=== PATIENT | male | born 1945 | race Caucasian/White ===

== ENCOUNTER 2017-10-29 09:32 | Emergency (ER) | payer OTHER, BC ==
[~2017-10-29] VITALS: Ht 172.7 cm; Wt 95.5 kg
[~2017-10-29 09:32] MED LIST: ALLEGRA ALLERG180 MG PO; ALLEGRA ALLERGY60 MG PO; ALLEGRA30 MG PO; ALLEGRA60 MG PO; AMOXICILLIN875 MG PO; ASPIRIN81 M1 PO; AUGMENTIN500 MG PO; Aspirin E.C. PO; CHOLESTYRAMINE378 GM PO; COQ10 PO; DAILY VALUE1 EACH PO; KRILL OIL; LIDOCAINE20 MG/1 M5 PO; MOTRIN800 MG PO; Magic Mouthwash Garg MM; OMEPRAZOLE40 M1 PO; PERCOCET 5/31 TABLET PO; PRILOSEC20 MG PO; PRILOSEC40 MG PO; PRINIVIL5 MG PO; PROMETHAZINE HC25 M1 PO; PROZAC20 MG PO; ST. JOSEPH ASPI81 MG PO; TYLENOL EXTRA500 MG PO; Tylenol Extra Streng PO
[2017-10-29 10:00] LABS: BASOPHIL (%) 0.9 % (0-1); BASOPHIL COUNT 0.1 K/uL (0-0.1); EOSINOPHIL (%) 3.1 % (0-5); EOSINOPHIL COUNT 0.2 K/uL (0-0.3); HEMATOCRIT 46.7 % (38.0-50.0); IMMATURE GRANULOCYTE (%) 0.3 % (0.0-0.7); LYMPHOCYTE (%) 37.6 % (15-42); LYMPHOCYTE COUNT 2.9 K/uL (1.0-2.8); MCH 32.1 PG (29.0-34.0); MCHC 34.3 G/DL (30.0-36.0); MCV 93.6 FL (86-99); MONOCYTE (%) 10.7 % (3-12); MONOCYTE COUNT 0.8 K/uL (0-0.8); NEUTROPHIL (%) 47.4 % (45-76); NEUTROPHIL COUNT 3.6 K/uL (1.8-6.4); PLATELET COUNT 233 K/uL (156-360); RBC DIS.WIDTH-CV 12.8 % (11.8-14.6); RBC DIS.WIDTH-SD 43.8 % (39-53); RED BLOOD COUNT 4.99 M/uL (4.00-5.50); WHITE BLOOD COUNT 7.7 K/uL (4.1-10.2)
[2017-10-29 10:08] LABS: ALBUMIN 4.4 g/dL (3.2-4.8)
[2017-10-29 10:09] LABS: CHLORIDE 106 mEq/L (99-109); POTASSIUM 3.9 mEq/L (3.7-5.4); SODIUM 142 mEq/L (136-147)
[2017-10-29 10:11] LABS: GLUCOSE 110 mg/dL (70-99); TOTAL PROTEIN 7.6 g/dL (6.4-8.3)
[2017-10-29 10:13] LABS: TOTAL BILIRUBIN 1.2 mg/dL (0.0-1.0)
[2017-10-29 10:14] LABS: ALKALINE PHOSPHATASE 64 IU/L (3-129)
[2017-10-29 10:15] LABS: CREATININE 1.1 mg/dL (0.6-1.3); GFR ESTIMATE (CALCULATED) > 59 mL/min/ (58.99-99999)
[2017-10-29 10:16] LABS: AST (GOT) 76 IU/L (2-34); UREA NITROGEN (BUN) 21 mg/dL (9-23)
[2017-10-29 10:18] LABS: ALT (GPT) 46 IU/L (3-49); LIPASE 12 U/L (1.0-51.0)
[2017-10-29 10:20] LABS: TROP-I INTERPRETATION NEGATIVE; TROPONIN-I < 0.01 ng/mL (0.0-0.30)
[2017-10-29 12:50] VITALS: BP 100/59
== END 2017-10-29 12:55 | disposition home or self-care (01) ==
LOC: EME 09:32
PROVIDERS: Emergency Medicine
DX: R10.13 Epigastric pain (principal); K21.9 Gastro-esophageal reflux disease without esophagitis; K22.70 Barrett's esophagus without dysplasia; I10 Essential (primary) hypertension; F41.9 Anxiety disorder, unspecified; F32.9 Major depressive disorder, single episode, unspecified; Z90.49 Acquired absence of other specified parts of digestive tract; Z87.442 Personal history of urinary calculi; Z87.891 Personal history of nicotine dependence; Z86.73 Personal history of transient ischemic attack (TIA), and cerebral infarction without residual deficits; Z88.2 Allergy status to sulfonamides
CPT/HCPCS: 71045; 74177; 80053; 83605; 83690; 84484; 85025; 85610; 93005; 99281; 99285; J2405; J3010; J7030

== ENCOUNTER 2017-10-29 23:49 | Emergency (ER) | payer OTHER, BC ==
[~2017-10-29] VITALS: Ht 177.8 cm; Wt 96.5 kg
[2017-10-30 00:04] VITALS: BP 113/81
[2017-10-30 00:39] LABS: HEMATOCRIT 42.7 % (38.0-50.0); HEMOGLOBIN 14.7 G/DL (12.5-16.6); MCH 32.3 PG (29.0-34.0); MCHC 34.4 G/DL (30.0-36.0); MCV 93.8 FL (86-99); PLATELET COUNT 213 K/uL (156-360); RBC DIS.WIDTH-CV 12.8 % (11.8-14.6); RBC DIS.WIDTH-SD 44.2 % (39-53); RED BLOOD COUNT 4.55 M/uL (4.00-5.50)
[2017-10-30 00:47] LABS: ALBUMIN 3.9 g/dL (3.2-4.8); CHLORIDE 106 mEq/L (99-109); SODIUM 139 mEq/L (136-147)
[2017-10-30 00:49] LABS: GLUCOSE 110 mg/dL (70-99); TOTAL PROTEIN 6.6 g/dL (6.4-8.3)
[2017-10-30 00:51] LABS: TOTAL BILIRUBIN 1.1 mg/dL (0.0-1.0)
[2017-10-30 00:53] LABS: ALKALINE PHOSPHATASE 81 IU/L (3-129); CREATININE 1.1 mg/dL (0.6-1.3); GFR ESTIMATE (CALCULATED) > 59 mL/min/ (58.99-99999)
[2017-10-30 00:54] LABS: UREA NITROGEN (BUN) 17 mg/dL (9-23)
[2017-10-30 00:56] LABS: LIPASE 12 U/L (1.0-51.0)
[2017-10-30 01:06] LABS: ALT (GPT) 170 IU/L (3-49); AST (GOT) 147 IU/L (2-34)
== END 2017-10-30 02:30 | disposition left against medical advice (07) ==
LOC: EME 23:49
DX: R10.9 Unspecified abdominal pain (principal); Z53.21 Procedure and treatment not carried out due to patient leaving prior to being seen by health care provider
CPT/HCPCS: 80053; 81003; 83690; 85027

== ENCOUNTER 2017-12-14 10:38 | Inpatient (IN) | payer OTHER, BC ==
[~2017-12-14] VITALS: Ht 177.8 cm; Wt 97.0 kg
[~2017-12-14 10:38] MED LIST changes: -ALLEGRA60 MG PO
[2017-12-14 11:02] LABS: BASOPHIL (%) 0.4 % (0-1); EOSINOPHIL (%) 2.2 % (0-5); EOSINOPHIL COUNT 0.2 K/uL (0-0.3); HEMATOCRIT 42.1 % (38.0-50.0); IMMATURE GRANULOCYTE (%) 0.1 % (0.0-0.7); LYMPHOCYTE (%) 23.5 % (15-42); LYMPHOCYTE COUNT 1.6 K/uL (1.0-2.8); MCH 33.1 PG (29.0-34.0); MCHC 35.6 G/DL (30.0-36.0); MCV 92.9 FL (86-99); MONOCYTE (%) 11.2 % (3-12); MONOCYTE COUNT 0.8 K/uL (0-0.8); NEUTROPHIL (%) 62.6 % (45-76); NEUTROPHIL COUNT 4.2 K/uL (1.8-6.4); PLATELET COUNT 220 K/uL (156-360); RBC DIS.WIDTH-CV 12.3 % (11.8-14.6); RBC DIS.WIDTH-SD 42.4 % (39-53); RED BLOOD COUNT 4.53 M/uL (4.00-5.50); WHITE BLOOD COUNT 6.8 K/uL (4.1-10.2)
[2017-12-14 11:13] LABS: ALBUMIN 3.8 g/dL (3.2-4.8); CHLORIDE 104 mEq/L (99-109); POTASSIUM 3.9 mEq/L (3.7-5.4); SODIUM 138 mEq/L (136-147)
[2017-12-14 11:16] LABS: GLUCOSE 103 mg/dL (70-99); TOTAL PROTEIN 6.7 g/dL (6.4-8.3)
[2017-12-14 11:19] LABS: ALKALINE PHOSPHATASE 69 IU/L (3-129); GFR ESTIMATE (CALCULATED) > 59 mL/min/ (58.99-99999)
[2017-12-14 11:20] LABS: UREA NITROGEN (BUN) 18 mg/dL (9-23)
[2017-12-14 11:21] LABS: AST (GOT) 108 IU/L (2-34)
[2017-12-14 11:22] LABS: ALT (GPT) 56 IU/L (3-49)
[2017-12-14 11:36] LABS: LIPASE 2061 U/L (1.0-51.0)
[2017-12-14 14:13] LABS: HDL CHOLESTEROL 42 MG/DL (Desirable>=40); LDL CHOLESTEROL 115 mg/dL (Desirable<100); NON-HDL CHOLESTEROL 165 mg/dL (Desirable<160); TOTAL CHOLESTEROL 207 mg/dL (Desirable<200); TRIGLYCERIDES 252 MG/DL (Normal: <150)
[2017-12-14 15:52] LABS: TROP-I INTERPRETATION NEGATIVE; TROPONIN-I < 0.01 ng/mL (0.0-0.30)
[2017-12-14] MEDS ORDERED: CLOBETASOL PROP60 G1 TP (16:00)
[2017-12-14] MEDS ORDERED: VITAMIN E100 UNIT PO (16:00)
[2017-12-14 16:12] VITALS: BP 141/72
[2017-12-14 16:19] LABS: C-REACTIVE PROTEIN 1.9 MG/L (0-10)
[2017-12-14 16:38] LABS: ERTH.SED.RATE 7 MM/HR (0-20)
[2017-12-14 19:15] VITALS: BP 136/75
[2017-12-14 20:25] LABS: APPEARANCE CLEAR ((CLEAR)); BILIRUBIN NEGATIVE; BLOOD SMALL; COLOR YELLOW ((YELLOW)); GLUCOSE (STRIP) NEGATIVE; KETONES NEGATIVE; LEUKOCYTES NEGATIVE; NITRITE NEGATIVE; PROTEIN (STRIP) NEGATIVE; SPECIFIC GRAVITY 1.039 (1.000-1.030)
[2017-12-14 20:36] LABS: BACTERIA NONE SEEN /HPF; EPITHELIAL CELLS NONE SEEN /HPF; MUCUS TRACE /LPF; RED BLOOD CELLS 0-5 /HPF (0-5); UCUL ADDED? NO; WHITE BLOOD CELLS NONE SEEN /HPF (0-5)
[2017-12-15 00:49] VITALS: BP 112/60
[2017-12-15 04:27] VITALS: BP 132/79
[2017-12-15 05:31] LABS: BASOPHIL (%) 0.3 % (0-1); EOSINOPHIL (%) 2.2 % (0-5); EOSINOPHIL COUNT 0.2 K/uL (0-0.3); HEMATOCRIT 40.5 % (38.0-50.0); HEMOGLOBIN 13.9 G/DL (12.5-16.6); IMMATURE GRANULOCYTE (%) 0.3 % (0.0-0.7); LYMPHOCYTE (%) 17.3 % (15-42); LYMPHOCYTE COUNT 1.5 K/uL (1.0-2.8); MCH 32.4 PG (29.0-34.0); MCHC 34.3 G/DL (30.0-36.0); MCV 94.4 FL (86-99); MONOCYTE (%) 9.7 % (3-12); MONOCYTE COUNT 0.9 K/uL (0-0.8); NEUTROPHIL (%) 70.2 % (45-76); NEUTROPHIL COUNT 6.2 K/uL (1.8-6.4); PLATELET COUNT 209 K/uL (156-360); RBC DIS.WIDTH-CV 12.7 % (11.8-14.6); RBC DIS.WIDTH-SD 43.8 % (39-53); RED BLOOD COUNT 4.29 M/uL (4.00-5.50); WHITE BLOOD COUNT 8.8 K/uL (4.1-10.2)
[2017-12-15 06:07] LABS: ALBUMIN 3.3 G/DL (3.2-4.8); ALKALINE PHOSPHATASE 79 IU/L (3-129); ALT (GPT) 108 IU/L (3-49); AMYLASE 777 IU/L (1-118); AST (GOT) 70 IU/L (2-34); CHLORIDE 104 MEQ/L (99-109); CREATININE 0.8 MG/DL (0.6-1.3); GFR ESTIMATE (CALCULATED) > 59 mL/min/ (58.99-99999); GLUCOSE 85 mg/dL (70-99); LIPASE 1016 U/L (1.0-51.0); POTASSIUM 4.2 MEQ/L (3.7-5.4); SODIUM 138 MEQ/L (136-147); TOTAL BILIRUBIN 1.3 MG/DL (0.0-1.0); TOTAL PROTEIN 5.6 G/DL (6.4-8.3); UREA NITROGEN (BUN) 14 mg/dL (9-23)
[2017-12-15 07:19] VITALS: BP 125/69
[2017-12-15 11:30] VITALS: BP 97/65
[2017-12-15 16:24] VITALS: BP 137/78
[2017-12-15 20:05] VITALS: BP 114/65
[2017-12-16 00:45] VITALS: BP 116/62
[2017-12-16 04:25] VITALS: BP 113/65
[2017-12-16 07:59] VITALS: BP 113/64
[2017-12-16 08:52] LABS: ALBUMIN 3.4 G/DL (3.2-4.8); ALKALINE PHOSPHATASE 77 IU/L (3-129); ALT (GPT) 70 IU/L (3-49); CHLORIDE 104 MEQ/L (99-109); CREATININE 0.9 MG/DL (0.6-1.3); GFR ESTIMATE (CALCULATED) > 59 mL/min/ (58.99-99999); GLUCOSE 105 mg/dL (70-99); POTASSIUM 4.4 MEQ/L (3.7-5.4); SODIUM 140 MEQ/L (136-147); TOTAL BILIRUBIN 1.4 MG/DL (0.0-1.0); TOTAL PROTEIN 5.6 G/DL (6.4-8.3); UREA NITROGEN (BUN) 12 mg/dL (9-23)
[2017-12-16 08:59] LABS: AST (GOT) 32 IU/L (2-34)
[2017-12-16 11:58] VITALS: BP 116/57
[2017-12-16 12:44] LABS: LIPASE 76 U/L (1.0-51.0)
[2017-12-16 12:47] LABS: AMYLASE 233 IU/L (1-118)
[2017-12-16 15:39] VITALS: BP 131/75
[2017-12-16 19:05] VITALS: BP 114/67
[2017-12-17 00:30] VITALS: BP 120/61
[2017-12-17 04:25] VITALS: BP 112/68
[2017-12-17 06:09] LABS: LIPASE 16 U/L (1.0-51.0)
[2017-12-17 06:15] LABS: AMYLASE 96 IU/L (1-118)
[2017-12-17 07:27] VITALS: BP 11/68
[2017-12-17 11:46] VITALS: BP 115/78
[2017-12-17 15:36] VITALS: BP 117/87
[2017-12-17 19:53] VITALS: BP 127/72
[2017-12-18 00:01] VITALS: BP 118/66
[2017-12-18 04:30] VITALS: BP 121/68
[2017-12-18 05:52] LABS: AMYLASE 51 IU/L (1-118); LIPASE 13 U/L (1.0-51.0)
[2017-12-18 07:25] VITALS: BP 128/66
[2017-12-18 08:15] LABS: ALBUMIN 3.3 G/DL (3.2-4.8); ALKALINE PHOSPHATASE 60 IU/L (3-129); ALT (GPT) 38 IU/L (3-49); CHLORIDE 101 MEQ/L (99-109); CREATININE 1.1 MG/DL (0.6-1.3); GFR ESTIMATE (CALCULATED) > 59 mL/min/ (58.99-99999); GLUCOSE 88 mg/dL (70-99); SODIUM 137 MEQ/L (136-147); TOTAL PROTEIN 5.5 G/DL (6.4-8.3); UREA NITROGEN (BUN) 13 mg/dL (9-23)
[2017-12-18 08:18] LABS: AST (GOT) 15 IU/L (2-34); TOTAL BILIRUBIN 0.9 MG/DL (0.0-1.0)
== END 2017-12-18 10:35 | disposition home or self-care (01) | DRG 438 ==
LOC: EME 10:38 → 4EAST 13:13 → EDOF 13:13 → ENRESERV 13:14 → EDOF 14:54 → ENRESERV 14:56 → 4EAST 15:56 → ENRESERV 12-17 11:56 → CANRESERV 12-17 12:57 → 4EAST 12-18 10:35
PROVIDERS: Emergency Medicine; Hospitalist; Internal Medicine; Internal Medicine Gastroenterology; Nurse Practitioner Adult Health
DX: K86.1 Other chronic pancreatitis (principal); I10 Essential (primary) hypertension; E78.5 Hyperlipidemia, unspecified; K21.9 Gastro-esophageal reflux disease without esophagitis; Z90.49 Acquired absence of other specified parts of digestive tract; K85.90 Acute pancreatitis without necrosis or infection, unspecified; R79.89 Other specified abnormal findings of blood chemistry; N18.6 End stage renal disease; Z79.899 Other long term (current) drug therapy; Z86.73 Personal history of transient ischemic attack (TIA), and cerebral infarction without residual deficits; Z87.891 Personal history of nicotine dependence; K22.70 Barrett's esophagus without dysplasia; N17.2 Acute kidney failure with medullary necrosis; E78.1 Pure hyperglyceridemia
CPT/HCPCS: 71275; 74018; 74177; 74183; 74328; 80053; 80061; 81003; 82150; 83605; 83690; 84478; 84484; 85025; 85379; 85651; 86140; 87081; 88108; 93005; 99281; 99285; C1726; C1757; C1769; C2625; J0330; J1170; J2405; J2710; J3010; J7030; J7120; J7643

== ENCOUNTER → 2018-02-08 | Outpatient (CLI) | payer OTHER, BC ==
[~2018-02-08] VITALS: Ht 177.8 cm; Wt 92.5 kg
[~2018-02-08] MED LIST changes: +CLOBETASOL PROP60 G1 TP; +VITAMIN E100 UNIT PO
== END | disposition home or self-care (01) ==
LOC: AMB 12:00
PROC: 0FPB8DZ Removal of Intraluminal Device from Hepatobiliary Duct, Via Natural or Artificial Opening Endoscopic (ICD-10-PCS; principal; 2018-02-08)
DX: Z45.89 Encounter for adjustment and management of other implanted devices (principal); K22.70 Barrett's esophagus without dysplasia; K57.30 Diverticulosis of large intestine without perforation or abscess without bleeding; K21.9 Gastro-esophageal reflux disease without esophagitis; E78.5 Hyperlipidemia, unspecified; Z86.010 Personal history of colon polyps; F17.290 Nicotine dependence, other tobacco product, uncomplicated; Z88.2 Allergy status to sulfonamides
CPT/HCPCS: 74330; 87081; C1757; J1100; J2250; J2405; J3010